=== PATIENT | female | born 1995 | race Caucasian/White ===

== ENCOUNTER 2022-11-09 20:32 | Emergency (ER) | payer OTHER ==
[~2022-11-09] VITALS: Ht 167.6 cm; Wt 58.4 kg
[2022-11-09 20:33] VITALS: BP 126/85; TEMP 97.8; O2SAT 100
[2022-11-09] MEDS ORDERED: methocarbamoL 500 MG TAB PO ONE (22:50)
[2022-11-09] MEDS ORDERED: IBUPROFEN 600MG TAB PO ONE (22:50)
[2022-11-09] MEDS ORDERED: IBUP-1022 PO (23:11)
[2022-11-09] MEDS ORDERED: METH-1164 PO (23:11)
== END 2022-11-09 23:40 | disposition home or self-care (01) ==
LOC: M ED 20:32
DX: S43.402A Unspecified sprain of left shoulder joint, initial encounter (principal); Z88.1 Allergy status to other antibiotic agents; Z79.1 Long term (current) use of non-steroidal anti-inflammatories (NSAID); Z79.899 Other long term (current) drug therapy; Y92.009 Unspecified place in unspecified non-institutional (private) residence as the place of occurrence of the external cause

== ENCOUNTER 2024-03-27 16:31 | Emergency (ER) | payer OTHER ==
[~2024-03-27] VITALS: Ht 172.7 cm; Wt 57.8 kg
[~2024-03-27 16:31] MED LIST: IBUP-1022 PO; METH-1164 PO
[2024-03-27 16:33] VITALS: BP 133/71; TEMP 97.9; O2SAT 100
== END 2024-03-27 19:29 | disposition home or self-care (01) ==
LOC: M ED 16:31
DX: J06.9 Acute upper respiratory infection, unspecified (principal); Z88.1 Allergy status to other antibiotic agents; Z11.52 Encounter for screening for COVID-19